=== PATIENT | male | born 1950 | race Caucasian/White ===

== ENCOUNTER 2018-12-18 05:40 | Observation (INO) | payer MEDICARE, OTHER ==
[2018-12-18] MEDS: LACTATED RINGER'S 1,000 ML IV (06:36)
[2018-12-18] MEDS ORDERED: LIDOCAINE 2% (SDV) 5 ML INJ (06:55)
[2018-12-18] MEDS ORDERED: EPHEDrine 25 MG/5 ML SYG (06:55)
[2018-12-18] MEDS ORDERED: PROPOFOL 200 MG INJ (06:55)
[2018-12-18] MEDS ORDERED: GLYCOPYRROLATE 0.4 MG INJ (06:55)
[2018-12-18] MEDS ORDERED: CEFAZOLIN 1 GM INJ (06:55)
[2018-12-18] MEDS ORDERED: ROCURONIUM 50 MG INJ (06:56)
[2018-12-18] MEDS ORDERED: MIDAZOLAM 1 MG/ML 2 ML INJ (06:56)
[2018-12-18] MEDS ORDERED: SUCCINYLCHOLINE CHLORIDE 100 MG/5 ML SYG IV (06:56)
[2018-12-18] MEDS ORDERED: ONDANSETRON 4 MG INJ (06:56)
[2018-12-18] MEDS ORDERED: DEXAMETHASONE 4 MG/ML 5 ML INJ ×2 (06:56→11:29)
[2018-12-18] MEDS: ROPIVACAINE 0.5 % 30 ML VIAL (06:57)
[2018-12-18] MEDS: POLYMYXIN/BACITRACIN 1L IRRIG (06:57)
[2018-12-18] MEDS ORDERED: ROPIVACAINE 0.5 % 30 ML VIAL (06:57)
[2018-12-18] MEDS ORDERED: NEOMYC/POLYMYX/BACIT 30 GM OINT (10:59)
[2018-12-18] MEDS ORDERED: SUGAMMADEX SODIUM 200 MG/2 ML VIAL IV (11:34)
[2018-12-18] MEDS ORDERED: morphine 10 MG INJ IV (12:00)
[2018-12-18] MEDS ORDERED: ONDANSETRON 4 MG INJ IV ×2 (12:00→13:30)
[2018-12-18] MEDS ORDERED: BISACODYL 10 MG SUPP PR (12:00)
[2018-12-18] MEDS ORDERED: DIPHENHYDRAMINE 25 MG CAP PO (12:00)
[2018-12-18] MEDS: HYDROmorphONE 0.2 MG/ML PCA IV (12:20)
[2018-12-18] MEDS ORDERED: hydrALAzine 20 MG INJ IV (13:30)
[2018-12-18] MEDS ORDERED: OXYCODONE/ACETAMINOPHEN (5/325) TAB PO (13:30)
[2018-12-18] MEDS ORDERED: EPHEDrine 25 MG/5 ML SYG IV (13:30)
[2018-12-18] MEDS ORDERED: LABETALOL HCL 20MG INJ IV (13:30)
[2018-12-18] MEDS ORDERED: MEPERIDINE 25 MG INJ IV (13:30)
[2018-12-18] MEDS ORDERED: DIPHENHYDRAMINE 50 MG INJ IV (13:30)
[2018-12-18] MEDS ORDERED: MIDAZOLAM 1 MG/ML 2 ML INJ IV (13:30)
[2018-12-18] MEDS ORDERED: HYDROmorphONE 1 MG/5 ML IV SYRINGE IV ×2 (13:30)
[2018-12-18] MEDS ORDERED: FENTAnyl 50 MCG/ML VIAL IV (13:30)
[2018-12-18] MEDS: SOD CHLORIDE 0.9% 1,000 ML IV ×2 (15:10→15:13)
[2018-12-18] MEDS: CEFAZOLIN 1 GM/50 ML (PMX) 50 ML IVPB (20:19)
[2018-12-18] MEDS: TAMSULOSIN (SR) 0.4 MG CAP PO (20:20)
[2018-12-18] MEDS: SENNA/DOCUSATE NA (8.6MG/50MG) TAB PO (20:20)
[2018-12-19] MEDS: HYDROmorphONE 0.2 MG/ML PCA IV (00:45)
[2018-12-19] MEDS: SOD CHLORIDE 0.9% 1,000 ML IV (01:15)
[2018-12-19] MEDS: CEFAZOLIN 1 GM/50 ML (PMX) 50 ML IVPB ×2 (03:26→11:18)
[2018-12-19 05:11] LABS: ADD MAN DIFF? NO
[2018-12-19 05:16] LABS: BASOPHILS % 0.1 % (0.0-2.0); HEMATOCRIT 38.4 % (42.0-52.0); HEMOGLOBIN 12.6 g/dl (14.0-18.0); LYMPHOCYTES # 1.3 10^3/ul (0.8-2.9); LYMPHOCYTES % 12.1 % (15.0-51.0); MEAN CORPUSCULAR HEMOGLOBIN 30.5 pg (29.0-33.0); MEAN CORPUSCULAR HGB CONC 32.8 g/dl (32.0-37.0); MEAN PLATELET VOLUME 10.7 fl (7.4-10.4); MONOCYTE # 1.1 10^3/ul (0.3-0.9); NEUTROPHIL # 8.2 10^3/ul (1.6-7.5); NEUTROPHILS % 77.4 % (39.0-77.0); PLATELET COUNT 195 10^3/UL (140-415); RED BLOOD COUNT 4.13 10^6/ul (4.70-6.10); RED CELL DISTRIBUTION WIDTH 13.2 % (11.5-14.5)
[2018-12-19 05:16] LABS: WHITE BLOOD COUNT 10.6 10^3/ul (4.8-10.8)
[2018-12-19 05:37] LABS: ANION GAP 3 (5-13); BLOOD UREA NITROGEN 19 mg/dl (7-20); CALCIUM 8.6 mg/dl (8.4-10.2); CARBON DIOXIDE 29 mmol/L (21-31); CHLORIDE 105 mmol/L (97-110); Estimated GFR > 60 mL/min (>60); GLUCOSE 127 mg/dl (70-220); MAGNESIUM 1.9 mg/dl (1.7-2.5); PHOSPHORUS 4.5 mg/dl (2.5-4.9); POTASSIUM 4.3 mmol/L (3.5-5.1); SODIUM 137 mmol/L (135-144)
[2018-12-19] MEDS: SENNA/DOCUSATE NA (8.6MG/50MG) TAB PO (08:21)
[2018-12-19] MEDS: APIXABAN 5 MG TABLET PO (08:21)
[2018-12-19] MEDS ORDERED: APIXABAN 5 MG TABLET PO (09:00)
[2018-12-19] MEDS: OXYCODONE/ACETAMINOPHEN (5/325) TAB PO (10:26)
[2018-12-20] MEDS ORDERED: MAGNESIUM HYDROXIDE 30ML CUP PO (21:00)
== END 2018-12-19 14:35 | disposition home or self-care (01) ==
LOC: SDS 05:40 → REC 12:03 → MS1 13:21
DX: M19.072 Primary osteoarthritis, left ankle and foot (principal)
CPT/HCPCS: 27870; 73610; 80048; 83735; 84100; 85025; 97116; 97162; 97530; 99217